=== PATIENT | male | born 1990 | race Caucasian/White ===

== ENCOUNTER 2016-09-14 10:06 | Emergency (ER) | payer OTHER ==
--- NOTE | 2016-09-14 13:42 | ED NURSING NOTES ---
Clinical Report - Nurses [facility] [address] [place] [address] 09/14/2016 10:11 Patient: JONATHAN OQUENDO TRIAGE Triage time 1022 AM. Acuity: LEVEL 3. Alert. No acute distress. SEPSIS SCREEN: Sepsis Screen. Negative (no infection suspected/documented). JESSICA COMA SCORE: [place] Coma Scale: 15- eyes open spontaneously (4); best verbal response- oriented x 4 (5); best motor response- obeys commands (6). --10:33 Sherrell Marina R.N. 10:22 09/14/16. BP: 160/77. HR: 107. RR: 14. O2 saturation: 96%. Temp: 98.4 F (oral). Pain level now: 0/10. --10:33 Sherrell Marina R.N. Chief Complaint: (follow up for fast HR). late entry - 10:22 AM. --13:43 Sherrell Marina R.N. Weight: 104.3 kg stated. Height/Length: 69 inches Per Patient. BMI: 34. --10:21 Sherrell Marina R.N. Medications None. --10:22 Sherrell Marina R.N. Allergies No Known Drug Allergy. --10:22 Sherrell Marina R.N. Medication/allergy information source: the patient. --10:33 Sherrell Marina R.N. History Arrived by private vehicle. Historian: patient. Accompanied by family. Primary physician (Dr. Coleman). ( Pt states that went to walk in clinic yesterday afternoon in [place] due to feeling "fast heart rate" denies dizziness, SOB. Pt states "work up at [place] and was told to come back today to an ER for follow-up. Denies any symptoms since yesterday. Pt does admit being under stress and "drinking all weekend".). This started yesterday. No fever, weakness, cough, difficulty breathing or skin rash. Denies muscle aches. Treatment POT FEEDER: None. PAST MEDICAL HX: Immunizations: up-to-date. SOCIAL HX: Current some days light tobacco smoker. Alcohol use; consumes beer weekly. History of drug use. Recently used drugs days ago. (4). No infectious disease exposure. ABUSE ASSESSMENT: No report of abuse. SELF HARM ASSESSMENT: A self harm assessment was performed. The patient answered "no" to the question "Do you have thoughts of harming or killing yourself?" and "Have you recently had thoughts about harming or killing others?". FALL RISK ASSESSMENT: Fall risk assessment completed. No fall risk identified. NUTRITIONAL RISK ASSESSMENT: The nutritional risk assessment revealed no deficiencies. FUNCTIONAL ASSESSMENT: Functional assessment: no impairments noted. LEARNING NEEDS ASSESSMENT: The learning needs assessment revealed no barriers. SKIN INTEGRITY ASSESSMENT: Skin integrity risk assessment completed. No skin integrity risk identified. --10:33 Sherrell Marina R.N. ( Pt does admit to having used steroids in the past "over a month ago"). --10:35 Sherrell Marina R.N. PROBLEMS: Hypertension. --10:23 Sherrell Marina R.N. ADDITIONAL SURGERIES: no known surgeries. Interventions ID band on patient. --10:33 Sherrell Marina R.N. PHYSICAL ASSESSMENT Ambulatory to room. GENERAL / NEURO / PSYCH: Alert. Oriented X 4. Appears anxious. HEENT: Pupils equal, round and reactive to light. No facial asymmetry noted. Mucous membranes are pink. RESPIRATORY: Respirations not labored. Chest nontender. Breath sounds within normal limits. CVS: Capillary refill less than 2 seconds. Pulses within normal limits. GI / : Abdomen soft and nontender and normal bowel sounds. SKIN: Skin intact. Skin is warm and dry. Normal skin turgor. --10:35 Sherrell Marina R.N. NURSING PROGRESS NOTES The initial plan of care for this patient has been created This plan of care was discussed with the patient and family. monitoring specialist, pulse oximeter and NIBP monitor placed on patient; monitor alarms on. Patient gowned. Two patient identifiers checked. Call light placed in reach. Side rails up. Bed placed in lowest position. --10:36 Sherrell Marina R.N. EKG time: (1038). EKG was ordered, performed by a tech and shown to the ED physician. --10:51 DipeshGayatri, ANDREA Tech1 11:13 09/14/2016 Site #1 started via IV in the left forearm with an 20g angiocath; one attempt. Blood drawn: rainbow set. Labeled in the presence of the patient and sent to the lab. Saline lock flushed. --11:13 Sherrell Marina R.N. Cardiac rhythm: sinus tachycardia. Patient ID band checked for patient name, birthdate and medical record number. Blood samples drawn by nurse per protocol ; labeled in presence of the patient and sent to lab: rainbow set. The patient is calm. ( Pt does admit to doing cocaine this past weekend, would rather not be discussed in front of girlfriend, UA collected. Denies any symptoms). GENERAL / NEURO / PSYCH: The patient reports anxiety. Denies headache. RESPIRATORY: Denies difficulty breathing. CVS: Denies chest pain. GI / : Denies nausea. Call light placed in reach. Side rails up. Bed placed in lowest position. --11:15 Sherrell Marina R.N. 11:13 09/14/16. BP: 161/58. HR: 110. RR: 16. O2 saturation: 100% on room air. Pain level now: 0/10. --11:15 Sherrell Marina R.N. Cardiac rhythm: normal sinus rhythm. monitoring specialist, pulse oximeter and NIBP monitor placed on patient. Reassurance given. GENERAL / NEURO / PSYCH: The patient reports anxiety. Denies headache. RESPIRATORY: Denies difficulty breathing. CVS: Denies chest pain. GI / : Denies nausea. Call light placed in reach. Side rails up. --13:30 Sherrell Marina R.N. 13:29 09/14/16. BP: 153/90 (regular adult cuff) taken on the left arm, via an automated monitor, while sitting. HR: 118. RR: 22. O2 saturation: 100%. Temp: 98.1 F. Pain level now: 0/10. --13:30 Sherrell Marina R.N. DISPOSITION / DISCHARGE 13:39 09/14/2016 Site #1 removed upon discharge. Manual pressure, pressure dressing, bandaid and bandage applied. --13:39 Sherrell Marina R.N. Condition at departure: improved and stable. The goals identified in the patient's plan of care were met. No learning barriers present. Discharge instructions provided and reviewed with the patient. Reviewed warnings (drug use and fast HR). Activity restrictions (rest) reviewed. Patient verbalized understanding. Written instructions provided in Setswana. No medication instructions, treatment instructions or referrals given to the patient. The patient was discharged by the physician. He was discharged home and accompanied by spouse. He left the Emergency Department ambulatory and via private vehicle. Spouse driving. FALL RISK ASSESSMENT: Fall risk assessment completed. No fall risk identified. --13:40 Sherrell Marina R.N. 13:15 09/14/16. BP: 163/58. HR: 110. RR: 20. O2 saturation: 100% on room air. Temp: 98.3 F (oral). Pain level now: 0/10. --13:40 Sherrell Marina R.N. Cardiac rhythm: sinus tachycardia. Cardiac rhythm not normal sinus rhythm. --13:41 Sherrell Marina R.N. Departure time: 1341 PM. --13:41 Sherrell Marina R.N. Locked/Released at 09/14/2016 13:44 by Sherrell Marina R.N.
--- NOTE | 2016-09-14 13:42 | ED NURSING NOTES ---
Clinical Report - Nurses [facility] [address] [place] [address] 09/14/2016 10:11 Patient: JONATHAN OQUENDO TRIAGE Triage time 1022 AM. Acuity: LEVEL 3. Alert. No acute distress. SEPSIS SCREEN: Sepsis Screen. Negative (no infection suspected/documented). JESSICA COMA SCORE: [place] Coma Scale: 15- eyes open spontaneously (4); best verbal response- oriented x 4 (5); best motor response- obeys commands (6). --10:33 Sherrell Marina R.N. 10:22 09/14/16. BP: 160/77. HR: 107. RR: 14. O2 saturation: 96%. Temp: 98.4 F (oral). Pain level now: 0/10. --10:33 Sherrell Marina R.N. Chief Complaint: (follow up for fast HR). late entry - 10:22 AM. --13:43 Sherrell Marina R.N. Weight: 104.3 kg stated. Height/Length: 69 inches Per Patient. BMI: 34. --10:21 Sherrell Marina R.N. Medications None. --10:22 Sherrell Marina R.N. Allergies No Known Drug Allergy. --10:22 Sherrell Marina R.N. Medication/allergy information source: the patient. --10:33 Sherrell Marina R.N. History Arrived by private vehicle. Historian: patient. Accompanied by family. Primary physician (Dr. Coleman). ( Pt states that went to walk in clinic yesterday afternoon in [place] due to feeling "fast heart rate" denies dizziness, SOB. Pt states "work up at [place] and was told to come back today to an ER for follow-up. Denies any symptoms since yesterday. Pt does admit being under stress and "drinking all weekend".). This started yesterday. No fever, weakness, cough, difficulty breathing or skin rash. Denies muscle aches. Treatment BRICK BAKER: None. PAST MEDICAL HX: Immunizations: up-to-date. SOCIAL HX: Current some days light tobacco smoker. Alcohol use; consumes beer weekly. History of drug use. Recently used drugs days ago. (4). No infectious disease exposure. ABUSE ASSESSMENT: No report of abuse. SELF HARM ASSESSMENT: A self harm assessment was performed. The patient answered "no" to the question "Do you have thoughts of harming or killing yourself?" and "Have you recently had thoughts about harming or killing others?". FALL RISK ASSESSMENT: Fall risk assessment completed. No fall risk identified. NUTRITIONAL RISK ASSESSMENT: The nutritional risk assessment revealed no deficiencies. FUNCTIONAL ASSESSMENT: Functional assessment: no impairments noted. LEARNING NEEDS ASSESSMENT: The learning needs assessment revealed no barriers. SKIN INTEGRITY ASSESSMENT: Skin integrity risk assessment completed. No skin integrity risk identified. --10:33 Sherrell Marina R.N. ( Pt does admit to having used steroids in the past "over a month ago"). --10:35 Sherrell Marina R.N. PROBLEMS: Hypertension. --10:23 Sherrell Marina R.N. ADDITIONAL SURGERIES: no known surgeries. Interventions ID band on patient. --10:33 Sherrell Marina R.N. PHYSICAL ASSESSMENT Ambulatory to room. GENERAL / NEURO / PSYCH: Alert. Oriented X 4. Appears anxious. HEENT: Pupils equal, round and reactive to light. No facial asymmetry noted. Mucous membranes are pink. RESPIRATORY: Respirations not labored. Chest nontender. Breath sounds within normal limits. CVS: Capillary refill less than 2 seconds. Pulses within normal limits. GI / : Abdomen soft and nontender and normal bowel sounds. SKIN: Skin intact. Skin is warm and dry. Normal skin turgor. --10:35 Sherrell Marina R.N. NURSING PROGRESS NOTES The initial plan of care for this patient has been created This plan of care was discussed with the patient and family. auditing control clerk, pulse oximeter and NIBP monitor placed on patient; monitor alarms on. Patient gowned. Two patient identifiers checked. Call light placed in reach. Side rails up. Bed placed in lowest position. --10:36 Sherrell Marina R.N. EKG time: (1038). EKG was ordered, performed by a tech and shown to the ED physician. --10:51 DipeshGayatri, ANDREA Tech1 11:13 09/14/2016 Site #1 started via IV in the left forearm with an 20g angiocath; one attempt. Blood drawn: rainbow set. Labeled in the presence of the patient and sent to the lab. Saline lock flushed. --11:13 Sherrell Marina R.N. Cardiac rhythm: sinus tachycardia. Patient ID band checked for patient name, birthdate and medical record number. Blood samples drawn by nurse per protocol ; labeled in presence of the patient and sent to lab: rainbow set. The patient is calm. ( Pt does admit to doing cocaine this past weekend, would rather not be discussed in front of girlfriend, UA collected. Denies any symptoms). GENERAL / NEURO / PSYCH: The patient reports anxiety. Denies headache. RESPIRATORY: Denies difficulty breathing. CVS: Denies chest pain. GI / : Denies nausea. Call light placed in reach. Side rails up. Bed placed in lowest position. --11:15 Sherrell Marina R.N. 11:13 09/14/16. BP: 161/58. HR: 110. RR: 16. O2 saturation: 100% on room air. Pain level now: 0/10. --11:15 Sherrell Marina R.N. Cardiac rhythm: normal sinus rhythm. auditing control clerk, pulse oximeter and NIBP monitor placed on patient. Reassurance given. GENERAL / NEURO / PSYCH: The patient reports anxiety. Denies headache. RESPIRATORY: Denies difficulty breathing. CVS: Denies chest pain. GI / : Denies nausea. Call light placed in reach. Side rails up. --13:30 Sherrell Marina R.N. 13:29 09/14/16. BP: 153/90 (regular adult cuff) taken on the left arm, via an automated monitor, while sitting. HR: 118. RR: 22. O2 saturation: 100%. Temp: 98.1 F. Pain level now: 0/10. --13:30 Sherrell Marina R.N. DISPOSITION / DISCHARGE 13:39 09/14/2016 Site #1 removed upon discharge. Manual pressure, pressure dressing, bandaid and bandage applied. --13:39 Sherrell Marina R.N. Condition at departure: improved and stable. The goals identified in the patient's plan of care were met. No learning barriers present. Discharge instructions provided and reviewed with the patient. Reviewed warnings (drug use and fast HR). Activity restrictions (rest) reviewed. Patient verbalized understanding. Written instructions provided in Serbian. No medication instructions, treatment instructions or referrals given to the patient. The patient was discharged by the physician. He was discharged home and accompanied by spouse. He left the Emergency Department ambulatory and via private vehicle. Spouse driving. FALL RISK ASSESSMENT: Fall risk assessment completed. No fall risk identified. --13:40 Sherrell Marina R.N. 13:15 09/14/16. BP: 163/58. HR: 110. RR: 20. O2 saturation: 100% on room air. Temp: 98.3 F (oral). Pain level now: 0/10. --13:40 Sherrell Marina R.N. Cardiac rhythm: sinus tachycardia. Cardiac rhythm not normal sinus rhythm. --13:41 Sherrell Marina R.N. Departure time: 1341 PM. --13:41 Sherrell Marina R.N. Locked/Released at 09/14/2016 13:44 by Sherrell Marina R.N.
--- NOTE | 2016-09-14 13:42 | ED ORDER SUMMARY ---
..... Patient: JONATHAN OQUENDO OrderSheet [facility] VisitID: [id number] [place] [address] 26y, M Registration Date/Time: 09/14/2016 ORDER SHEET Weight: 104.3 kg (stated) Allergies: No Known Drug Allergy GENERAL ORDERS: CBC w Diff Urgent (10:41 09/14/2016 Martell PERRY) (Ack 10:48 Johnny) (11:13 EHassan R.N.) CMP Urgent (10:41 09/14/2016 Martell PERRY) (Ack 10:48 Johnny) (11:13 EHassan R.N.) UA-Culture if indicated Urgent (10:41 09/14/2016 Martell PERRY) (Ack 10:48 Johnny) (11:13 EHassan R.N.) Amylase Urgent (10:41 09/14/2016 Martell PERRY) (Ack 10:48 Johnny) (11:13 EHassan R.N.) Lipase Urgent (10:41 09/14/2016 Martell PERRY) (Ack 10:48 Johnny) (11:13 EHassan R.N.) CPK Urgent (10:41 09/14/2016 Martell PERRY) (Ack 10:48 Johnny) (11:13 EHassan R.N.) Troponin-I Urgent (10:41 09/14/2016 Martell PERRY) (Ack 10:48 Johnny) (11:13 EHassan R.N.) Urine Drug Screen Urgent (10:41 09/14/2016 Martell PERRY) (Ack 10:48 Johnny) (11:13 ROBERTassan R.N.) TSH Urgent (10:41 09/14/2016 Martell PERRY) (Ack 10:48 Johnny) (11:13 ROBERTassan R.N.) EKG - ER Stat (10:42 09/14/2016 LNations ER Tech1 per protocol) (10:42 LNations ER Tech1) Chest 1V Urgent (13:08 09/14/2016 Martell PERRY) (Ack 13:08 Johnyn) (13:23 EHassan R.N.) MEDICATION ORDERS: IV FLUIDS: IV Saline Lock (10:41 09/14/2016 Martell PERRY) (11:13 Chandu Souza) ORDER SHEET NOTES: [Electronically signed by hSerrell Marina R.N. (13:44 09/14/2016)] [Electronically signed by Irvin Lynn MD (13:58 09/14/2016)] [Electronically locked/signed by Sherrell Marina R.N. (13:44 09/14/2016)]
--- NOTE | 2016-09-14 13:42 | ED ORDER SUMMARY ---
..... Patient: JONATHAN OQUENDO OrderSheet [facility] VisitID: [id number] [place] [address] 26y, M Registration Date/Time: 09/14/2016 ORDER SHEET Weight: 104.3 kg (stated) Allergies: No Known Drug Allergy GENERAL ORDERS: CBC w Diff Urgent (10:41 09/14/2016 Martell PERRY) (Ack 10:48 Johnny) (11:13 EHassan R.N.) CMP Urgent (10:41 09/14/2016 Martell PERRY) (Ack 10:48 Johnny) (11:13 EHassan R.N.) UA-Culture if indicated Urgent (10:41 09/14/2016 Martell PERRY) (Ack 10:48 Johnny) (11:13 EHassan R.N.) Amylase Urgent (10:41 09/14/2016 Martell PERRY) (Ack 10:48 Johnny) (11:13 EHassan R.N.) Lipase Urgent (10:41 09/14/2016 Martell PERRY) (Ack 10:48 Johnny) (11:13 EHassan R.N.) CPK Urgent (10:41 09/14/2016 Martell PERRY) (Ack 10:48 Johnny) (11:13 EHassan R.N.) Troponin-I Urgent (10:41 09/14/2016 Martell PERRY) (Ack 10:48 Johnny) (11:13 EHassan R.N.) Urine Drug Screen Urgent (10:41 09/14/2016 Martell PERRY) (Ack 10:48 Johnny) (11:13 ROBERTassan R.N.) TSH Urgent (10:41 09/14/2016 Martell PERRY) (Ack 10:48 Johnny) (11:13 ROBERTassan R.N.) EKG - ER Stat (10:42 09/14/2016 LNations ER Tech1 per protocol) (10:42 LNations ER Tech1) Chest 1V Urgent (13:08 09/14/2016 Martell PERRY) (Ack 13:08 Johnny) (13:23 EHassan R.N.) MEDICATION ORDERS: IV FLUIDS: IV Saline Lock (10:41 09/14/2016 Martell PERRY) (11:13 Chandu Souza) ORDER SHEET NOTES: [Electronically signed by Sherrell Marina R.N. (13:44 09/14/2016)] [Electronically signed by Irvin Lynn MD (13:58 09/14/2016)] [Electronically locked/signed by Sherrell Marina R.N. (13:44 09/14/2016)]
--- NOTE | 2016-09-14 13:42 | ED CLINICAL REPORT ---
Clinical Report - Physicians/Mid Levels [facility] [address] [place] [address] 09/14/2016 10:11 Patient: JONATHAN OQUENDO Time Seen: 10:43. Arrived- By private vehicle. Historian- patient. HISTORY OF PRESENT ILLNESS Chief Complaint: PALPITATIONS. This started about 4 days ago and is still present. History of cocaine use prior to onset. It has been waxing/waning. It is described as a fast heart beat. No chest pain or discomfort, difficulty breathing, fainting episodes or dizziness. ( patient reports bout of binge drinking over the weekend. He said that while he was drunk he used cocaine. Since that time he has felt that his heart is racing.). Recent medical care: The patient was seen recently at another facility in a clinic. Seen for similar symptoms. Diagnosis: (palpitations). REVIEW OF SYSTEMS No chills, fever, sweats, calf pain or chest pain. No cough, difficulty breathing, pedal edema, abdominal pain or constipation. No diarrhea, nausea, vomiting or urinary problems. All systems otherwise negative, except as recorded above. PAST HISTORY Problems: Hypertension. Additional Surgeries: no known surgeries. Medications: None. Allergies: No Known Drug Allergy. SOCIAL HISTORY Current some days smoker (cigarette). Heavy alcohol use; consumes beer weekly. History of drug use about 4 days ago: cocaine. Recently used drugs. FAMILY HISTORY Denies family medical history. ADDITIONAL NOTES The nursing notes have been reviewed. PHYSICAL EXAM Vital Signs: 09/14/2016 10:22 BP: 160/77. HR: 107. RR: 14. O2 saturation: 96%. Temp: 98.4 F. Pain level now: 0/10. Have been reviewed. Appearance: Alert. Anxious. Eyes: Pupils equal, round and reactive to light. ENT: Pharynx normal. Neck: Normal inspection. Neck supple. CVS: Tachycardia. No cardiac murmur or extra heart sounds. Respiratory: No respiratory distress. Breath sounds normal. Abdomen: Soft and nontender. Bowel sounds normal. No organomegaly. No mass. Back: Normal external inspection. No CVA tenderness. Skin: Skin warm and dry. Normal skin color. Normal skin turgor. Extremities: Extremities exhibit normal ROM. No calf tenderness. No lower extremity edema. LABS, X-RAYS, AND EKG EKG: Rate: 110. Non-specific ST segment / T wave abnormalities. Non-specific T wave inversion in lead V4, V5 and V6. Prior EKG unavailable. The study has been independently viewed by me. Chest X-ray: No acute disease. The X-rays were independently viewed by me. Laboratory Tests: UA-Culture if indicated: (MARNI: 09/14/2016 11:20) ( [facility] [place] 09/14/2016 11:57) Final results Test Result Flag Units (Reference) URINE COLOR TIM URINE APPEARANCE CLEAR URINE GLUCOSE NEGATIVE (NEGATIVE) URINE BILIRUBIN ICTOTEST NEGATIVE (NEGATIVE) URINE KETONE 3+ (NEGATIVE) URINE SPECIFIC GRAVITY 1.025 (1.010-1.030) URINE PH 6.0 (5.0-8.0) URINE PROTEIN 2+ (NEGATIVE) URINE UROBILINOGEN 1.0 EU/dL (0.2-1.0) URINE NITRITE NEGATIVE (NEGATIVE) URINE BLOOD TRACE-INTACT (NEGATIVE) URINE LEUK ESTERASE NEGATIVE (NEGATIVE) URINE RBC RARE rbc/hpf (0-1) URINE WBC 0-1 wbc/hpf (0-1) URINE EPITHELIAL CELLS RARE EPI/hpf (0-5) URINE BACTERIA FEW (1+) (NONE SEEN) URINE COMMENT CULT NOT INDICATED 2+ MUCOUS. RARE HYALINE CAST.URINE CULTURES ARE SET-UP BASED ON THE FOLLOWING CRITERIA:POSITIVE NITRITEPOSITIVE LEUKOCYTE ESTERASEGREATER THAN 10 WHITE BLOOD CELLSMODERATE (2+) OR GREATER BACTERIA CBC w Diff: (MARNI: 09/14/2016 11:10) ( [facility] [place] 09/14/2016 11:27) Final results Test Result Flag Units (Reference) WHITE BLOOD COUNT 7.9 K/uL (4.5-11.5) RED BLOOD COUNT 5.15 M/uL (4.50-5.90) HEMOGLOBIN 16.8 gm/dL (13.5-17.5) HEMATOCRIT 49.8 % (41.0-53.0) MEAN CELL VOLUME 97 fL (80-100) MEAN CORPUSCULAR HGB 33 pg (26-34) MEAN CORPUSCULAR HGB CONC 34 g/dL (31-37) RED CELL DISTRIBUTION WIDTH 13.9 % (11.6-14.8) PLATELET COUNT 241 K/uL (150-400) NEUTROPHIL % 79.3 H % (50-75) LYMPH % 9.9 L % (25-40) MONO % 10.0 % (3-14) EOSINOPHIL % 0.2 % (0-4) BASOPHIL % 0.6 % (0-2) [id number]: (MARNI: 09/14/2016 11:24) ( [facility] [place] 09/14/2016 11:48) Final results Test Result Flag Units (Reference) URINE DRUG SCREEN POSITIVE,Unconfirmed DRUGS DETECTED: Cocaine The urine drug screen is a qualitative screening test fordrug overdose and abuse. All screen results should beconsidered as presumptive.Drugs screened for are as follows:BenzodiazepinesCocaineAmphetamines/MetamphetaminesTHC (Tetrahydrocannabinol)OpiatesBarbituratesTCA (Tricyclic Antidepressants)MethadonePositive results are unconfirmed. For confirmation, notifythe lab for the specimen to be sent to the reference lab.All confirmations must be performed by a differentmethodology.The ingestion of natural herbal and plant productscontaining Ephedra/Ephedra metabolites can produce in urineone or more substances capable of cross reacting withamphetamine/methamphetamine immunoassays. This testprovides a preliminary result only. A more specificalternative chemical method must be used to obtain aconfirmed analytical result. CMP: (MARNI: 09/14/2016 11:10) ( [facility] [place] 09/14/2016 12:13) IP Test Result Flag Units (Reference) GLUCOSE 88 mg/dL (70-110) BUN 13 mg/dL (7-18) CREATININE 1.1 mg/dL (0.6-1.3) Estimated GFR >60 mL/min Estimated GFR- >60 mL/min Note: Persistent reduction over 3 months in eGFR<60 mL/min/1.73 m2 defines CKD. Patients with eGFR values>=60 mL/min/1.73 m2 may also have CKD if evidence ofpersistent proteinuria. Additional information may be foundat www.kidney.org. SODIUM 136 mmol/L (136-145) POTASSIUM 3.4 L mmol/L (3.5-5.1) CHLORIDE 96 L mmol/L (98-107) CARBON DIOXIDE 24 mmol/L (21-32) CALCIUM 9.0 mg/dL (8.5-10.1) TOTAL PROTEIN 7.8 g/dL (6.4-8.2) ALBUMIN 4.1 g/dL (3.3-5.0) BILIRUBIN, TOTAL 1.8 H mg/dL (0.0-1.0) ALKALINE PHOSPHATASE 56 U/L (46-116) AST (SGOT) 50 H U/L (15-37) ALT (SGPT) 42 U/L (12-78) LIPASE 151 U/L (73-393) AMYLASE 40 U/L (25-115) CPK 1054 H U/L (24-260) TROPONIN I <0.05 L ng/mL (0.00-1.5) TROPONIN REFERENCE RANGE:<0.1 NEGATIVE0.1-1.5 INDETERMINANT>1.5 POSITIVE CK-MB 8.1 H ng/mL (0.5-3.2) %CKMB 0.8 % (0.0-4.0) . PROGRESS AND PROCEDURES Course of Care: Patient is stable. Patient/family counseled. Old clinic records reviewed. (his EKG performed at the [facility] on 09/13/16 was different only in that his rate was 161 at that time his nonspecific ST changes and T-wave abnormalities remain unchanged and are nondiagnostic). Disposition: Discharged. Condition: stable. CLINICAL IMPRESSION Palpitations Substance abuse- cocaine. INSTRUCTIONS No strenuous activity. Do not work until released. Avoid stimulants (such as cigarettes, coffee, cold medicines, sinus medicines, street drugs). Warnings: Further evaluation is necessary. GENERAL WARNINGS: Return or contact your physician immediately if your condition worsens or changes unexpectedly, if not improving as expected, or if other problems arise. Understanding of the discharge instructions verbalized by patient. (Electronically signed by Irvin Lynn MD 09/14/2016 13:58)
--- NOTE | 2016-09-14 13:42 | ED CLINICAL REPORT ---
Clinical Report - Physicians/Mid Levels [facility] [address] [place] [address] 09/14/2016 10:11 Patient: JONATHAN OQUENDO Time Seen: 10:43. Arrived- By private vehicle. Historian- patient. HISTORY OF PRESENT ILLNESS Chief Complaint: PALPITATIONS. This started about 4 days ago and is still present. History of cocaine use prior to onset. It has been waxing/waning. It is described as a fast heart beat. No chest pain or discomfort, difficulty breathing, fainting episodes or dizziness. ( patient reports bout of binge drinking over the weekend. He said that while he was drunk he used cocaine. Since that time he has felt that his heart is racing.). Recent medical care: The patient was seen recently at another facility in a clinic. Seen for similar symptoms. Diagnosis: (palpitations). REVIEW OF SYSTEMS No chills, fever, sweats, calf pain or chest pain. No cough, difficulty breathing, pedal edema, abdominal pain or constipation. No diarrhea, nausea, vomiting or urinary problems. All systems otherwise negative, except as recorded above. PAST HISTORY Problems: Hypertension. Additional Surgeries: no known surgeries. Medications: None. Allergies: No Known Drug Allergy. SOCIAL HISTORY Current some days smoker (cigarette). Heavy alcohol use; consumes beer weekly. History of drug use about 4 days ago: cocaine. Recently used drugs. FAMILY HISTORY Denies family medical history. ADDITIONAL NOTES The nursing notes have been reviewed. PHYSICAL EXAM Vital Signs: 09/14/2016 10:22 BP: 160/77. HR: 107. RR: 14. O2 saturation: 96%. Temp: 98.4 F. Pain level now: 0/10. Have been reviewed. Appearance: Alert. Anxious. Eyes: Pupils equal, round and reactive to light. ENT: Pharynx normal. Neck: Normal inspection. Neck supple. CVS: Tachycardia. No cardiac murmur or extra heart sounds. Respiratory: No respiratory distress. Breath sounds normal. Abdomen: Soft and nontender. Bowel sounds normal. No organomegaly. No mass. Back: Normal external inspection. No CVA tenderness. Skin: Skin warm and dry. Normal skin color. Normal skin turgor. Extremities: Extremities exhibit normal ROM. No calf tenderness. No lower extremity edema. LABS, X-RAYS, AND EKG EKG: Rate: 110. Non-specific ST segment / T wave abnormalities. Non-specific T wave inversion in lead V4, V5 and V6. Prior EKG unavailable. The study has been independently viewed by me. Chest X-ray: No acute disease. The X-rays were independently viewed by me. Laboratory Tests: UA-Culture if indicated: (MARNI: 09/14/2016 11:20) ( [facility] [place] 09/14/2016 11:57) Final results Test Result Flag Units (Reference) URINE COLOR TIM URINE APPEARANCE CLEAR URINE GLUCOSE NEGATIVE (NEGATIVE) URINE BILIRUBIN ICTOTEST NEGATIVE (NEGATIVE) URINE KETONE 3+ (NEGATIVE) URINE SPECIFIC GRAVITY 1.025 (1.010-1.030) URINE PH 6.0 (5.0-8.0) URINE PROTEIN 2+ (NEGATIVE) URINE UROBILINOGEN 1.0 EU/dL (0.2-1.0) URINE NITRITE NEGATIVE (NEGATIVE) URINE BLOOD TRACE-INTACT (NEGATIVE) URINE LEUK ESTERASE NEGATIVE (NEGATIVE) URINE RBC RARE rbc/hpf (0-1) URINE WBC 0-1 wbc/hpf (0-1) URINE EPITHELIAL CELLS RARE EPI/hpf (0-5) URINE BACTERIA FEW (1+) (NONE SEEN) URINE COMMENT CULT NOT INDICATED 2+ MUCOUS. RARE HYALINE CAST.URINE CULTURES ARE SET-UP BASED ON THE FOLLOWING CRITERIA:POSITIVE NITRITEPOSITIVE LEUKOCYTE ESTERASEGREATER THAN 10 WHITE BLOOD CELLSMODERATE (2+) OR GREATER BACTERIA CBC w Diff: (MARNI: 09/14/2016 11:10) ( [facility] 09/14/2016 11:27) Final results Test Result Flag Units (Reference) WHITE BLOOD COUNT 7.9 K/uL (4.5-11.5) RED BLOOD COUNT 5.15 M/uL (4.50-5.90) HEMOGLOBIN 16.8 gm/dL (13.5-17.5) HEMATOCRIT 49.8 % (41.0-53.0) MEAN CELL VOLUME 97 fL (80-100) MEAN CORPUSCULAR HGB 33 pg (26-34) MEAN CORPUSCULAR HGB CONC 34 g/dL (31-37) RED CELL DISTRIBUTION WIDTH 13.9 % (11.6-14.8) PLATELET COUNT 241 K/uL (150-400) NEUTROPHIL % 79.3 H % (50-75) LYMPH % 9.9 L % (25-40) MONO % 10.0 % (3-14) EOSINOPHIL % 0.2 % (0-4) BASOPHIL % 0.6 % (0-2) [id number]: (MARNI: 09/14/2016 11:24) ( [facility] 09/14/2016 11:48) Final results Test Result Flag Units (Reference) URINE DRUG SCREEN POSITIVE,Unconfirmed DRUGS DETECTED: Cocaine The urine drug screen is a qualitative screening test fordrug overdose and abuse. All screen results should beconsidered as presumptive.Drugs screened for are as follows:BenzodiazepinesCocaineAmphetamines/MetamphetaminesTHC (Tetrahydrocannabinol)OpiatesBarbituratesTCA (Tricyclic Antidepressants)MethadonePositive results are unconfirmed. For confirmation, notifythe lab for the specimen to be sent to the reference lab.All confirmations must be performed by a differentmethodology.The ingestion of natural herbal and plant productscontaining Ephedra/Ephedra metabolites can produce in urineone or more substances capable of cross reacting withamphetamine/methamphetamine immunoassays. This testprovides a preliminary result only. A more specificalternative chemical method must be used to obtain aconfirmed analytical result. CMP: (MARNI: 09/14/2016 11:10) ( [facility] 09/14/2016 12:13) IP Test Result Flag Units (Reference) GLUCOSE 88 mg/dL (70-110) BUN 13 mg/dL (7-18) CREATININE 1.1 mg/dL (0.6-1.3) Estimated GFR >60 mL/min Estimated GFR- >60 mL/min Note: Persistent reduction over 3 months in eGFR<60 mL/min/1.73 m2 defines CKD. Patients with eGFR values>=60 mL/min/1.73 m2 may also have CKD if evidence ofpersistent proteinuria. Additional information may be foundat www.kidney.org. SODIUM 136 mmol/L (136-145) POTASSIUM 3.4 L mmol/L (3.5-5.1) CHLORIDE 96 L mmol/L (98-107) CARBON DIOXIDE 24 mmol/L (21-32) CALCIUM 9.0 mg/dL (8.5-10.1) TOTAL PROTEIN 7.8 g/dL (6.4-8.2) ALBUMIN 4.1 g/dL (3.3-5.0) BILIRUBIN, TOTAL 1.8 H mg/dL (0.0-1.0) ALKALINE PHOSPHATASE 56 U/L (46-116) AST (SGOT) 50 H U/L (15-37) ALT (SGPT) 42 U/L (12-78) LIPASE 151 U/L (73-393) AMYLASE 40 U/L (25-115) CPK 1054 H U/L (24-260) TROPONIN I <0.05 L ng/mL (0.00-1.5) TROPONIN REFERENCE RANGE:<0.1 NEGATIVE0.1-1.5 INDETERMINANT>1.5 POSITIVE CK-MB 8.1 H ng/mL (0.5-3.2) %CKMB 0.8 % (0.0-4.0) . PROGRESS AND PROCEDURES Course of Care: Patient is stable. Patient/family counseled. Old clinic records reviewed. (his EKG performed at the [facility] [place] on 09/13/16 was different only in that his rate was 161 at that time his nonspecific ST changes and T-wave abnormalities remain unchanged and are nondiagnostic). Disposition: Discharged. Condition: stable. CLINICAL IMPRESSION Palpitations Substance abuse- cocaine. INSTRUCTIONS No strenuous activity. Do not work until released. Avoid stimulants (such as cigarettes, coffee, cold medicines, sinus medicines, street drugs). Warnings: Further evaluation is necessary. GENERAL WARNINGS: Return or contact your physician immediately if your condition worsens or changes unexpectedly, if not improving as expected, or if other problems arise. Understanding of the discharge instructions verbalized by patient. (Electronically signed by Irvin Lynn MD 09/14/2016 13:58)
--- NOTE | 2016-09-14 13:58 | ED DISCHARGE INSTRUCTIONS ---
Patient: JONATHAN OQUENDO General Instructions [facility] VisitID: [id number] [place] [address] 26y, M Registration Date/Time: 09/14/2016 Palpitations Substance abuse- cocaine. INSTRUCTIONS No strenuous activity. Do not work until released. Avoid stimulants (such as cigarettes, coffee, cold medicines, sinus medicines, street drugs). Warnings: Further evaluation is necessary. GENERAL WARNINGS: Return or contact your physician immediately if your condition worsens or changes unexpectedly, if not improving as expected, or if other problems arise. Understanding of the discharge instructions verbalized by patient. ADDITIONAL INFORMATION Heart Palpitations Palpitations refers to the feeling that your heart is beating hard, fast or irregular. Some people describe it as "pounding" or "skipped beats". Palpitations may occur in persons with heart disease, but can also occur in healthy persons. Heart-Related Causes: Arrhythmia (a change from the heart's normal rhythm) Disease of the heart valves [id number] Causes: Certain medicines (such as asthma inhalers and decongestants) Some herbal supplements, energy drinks and pills, and weight loss pills Illegal stimulant drugs (such as cocaine, crank, methamphetamine, PCP) Caffeine, alcohol and tobacco Medical conditions such as thyroid disease, anemia, anxiety and panic disorder Sometimes the cause cannot be found. Home Care: Avoid excess caffeine, alcohol, tobacco and any stimulant drugs. Tell your doctor about any prescription or dtiu-ggu-norinku or herbal medicines you take. Follow Up with your doctor or as advised by our staff. Get Prompt Medical Attention if any of the following occur together with palpitations: Weakness, dizziness, light-headed or fainting Chest pain or shortness of breath Rapid heart rate (over 120 beats per minute, at rest) Palpitations that lasts over 20 minutes Weakness of an arm or leg or one side of the face Difficulty with speech or vision Cocaine and Crack Abuse Cocaine is typically snorted or injected intravenously (IV).Crack is made from cocaine, and can be smoked, causing a more potent effect. Cocaine causes a very powerful psychological dependence. Once you have a psychological dependence, you will do just about anything to get the drug and recreate the feeling it produces. This can increase your risk for any of the following: Overdose that may lead to Loss of your job, your home, your family Accidental injuries to yourself or others while you are under the influence of the drug (in a car or at home) Arrest, conviction and group home sentence for possession of an illegal substance or for driving under the influence Medically, cocaine can affect every organ in your body.It can cause: Chest pain, arrhythmia (abnormal heart beating), heart attack Severe headache, seizures, loss of consciousness, stroke Anxiety, psychosis, confusion Nasal damage (from snorting) Chronic bronchitis (from smoking), shortness of breath HIV infection, Hepatitis B or C, heart infection (from IV use) Kidney failure Home Care: Admit you have a drug problem. Ask for help from your family and close friends. Seek psychotherapy or counseling if depression or anxiety is a problem for you. Join a self-help group for drug abuse. Avoid friends who abuse drugs themselves or tempt you to continue abusing the drug. Eat a balanced diet and begin a regular exercise program. If you continue to use IV cocaine, decrease your risk of receiving or spreading infection by: Only using sterile equipment Do not reuse or share equipment Clean the skin before injecting Follow Up With Your Doctor Or As Advised By Our Staff. Contact One Of The Resources Below For Help. National [place] on Alcoholism and Drug Dependence 305-678-IQDW www.ncadd.org Narcotics Anonymous www.na.org National Alcohol and Substance Abuse Information Center (can tell you about the drug treatment programs in your area) 535.264.7451 www.addictioncareoptions.com Return Promptly Or Contact Your Doctor If Any Of The Following Occurs: Chest, arm, neck or upper back pain Shortness of breath, dizziness, weakness, passing out Agitation, anxiety, unable to sleep Unintended weight loss (more than 10-15 pounds over 6 months) Hallucination, severe depression, thoughts of harming yourself or another Severe headache, seizure; numbness or weakness of the face, one arm or one leg Slurred speech, confusion, trouble speaking, walking or seeing Fever of 100.4F(38C) or higher, or as directed by your healthcare provider Redness, pain or swelling at an injection site Loss of vision or decreased vision You have been given the following additional information: Palpitations Cocaine And Crack Abuse No strenuous activity. Do not work until released. (Electronically signed by Irvin Lynn MD 09/14/2016 13:58)
--- NOTE | 2016-09-14 13:58 | ED MED RECONCILIATION SUMMARY ---
Patient: JONATHAN OQUENDO Medication Reconciliation Report [facility] VisitID: [id number] [address] [place] [place] [address] 26y, M Registration Date/Time: 09/14/2016 Weight: 104.3 kg Height/Length: 69 in. BMI: 34.0 ALLERGIES: No Known Drug Allergy The patient's Home Medications are listed below: NONE. The source(s) of the original Home Medication information: patient The following Medications were given to the patient in the Emergency Department: None. The following Medications were prescribed to the patient: None.
--- NOTE | 2016-09-14 13:58 | ED MAR SUMMARY ---
..... Medication Administration Record [facility] [address] [place], [place] [id number] Patient: JONATHAN OQUENDO Visit ID: [id number] 26y, M Weight: 104.3 kg Height/Length: 69 in BMI: 34 ALLERGIES: No Known Drug Allergy
--- NOTE | 2016-09-14 13:58 | ED MAR SUMMARY ---
..... Medication Administration Record [facility] [address] [place], [place] [id number] Patient: JONATHAN OQUENDO Visit ID: [id number] 26y, M Weight: 104.3 kg Height/Length: 69 in BMI: 34 ALLERGIES: No Known Drug Allergy
--- NOTE | 2016-09-14 13:58 | ED DISCHARGE INSTRUCTIONS ---
Patient: JONATHAN OQUENDO General Instructions [facility] VisitID: [id number] [place] [address] 26y, M Registration Date/Time: 09/14/2016 Palpitations Substance abuse- cocaine. INSTRUCTIONS No strenuous activity. Do not work until released. Avoid stimulants (such as cigarettes, coffee, cold medicines, sinus medicines, street drugs). Warnings: Further evaluation is necessary. GENERAL WARNINGS: Return or contact your physician immediately if your condition worsens or changes unexpectedly, if not improving as expected, or if other problems arise. Understanding of the discharge instructions verbalized by patient. ADDITIONAL INFORMATION Heart Palpitations Palpitations refers to the feeling that your heart is beating hard, fast or irregular. Some people describe it as "pounding" or "skipped beats". Palpitations may occur in persons with heart disease, but can also occur in healthy persons. Heart-Related Causes: Arrhythmia (a change from the heart's normal rhythm) Disease of the heart valves Nqy-Gbryr-Wkytrii Causes: Certain medicines (such as asthma inhalers and decongestants) Some herbal supplements, energy drinks and pills, and weight loss pills Illegal stimulant drugs (such as cocaine, crank, methamphetamine, PCP) Caffeine, alcohol and tobacco Medical conditions such as thyroid disease, anemia, anxiety and panic disorder Sometimes the cause cannot be found. Home Care: Avoid excess caffeine, alcohol, tobacco and any stimulant drugs. Tell your doctor about any prescription or gavk-blo-epkobsk or herbal medicines you take. Follow Up with your doctor or as advised by our staff. Get Prompt Medical Attention if any of the following occur together with palpitations: Weakness, dizziness, light-headed or fainting Chest pain or shortness of breath Rapid heart rate (over 120 beats per minute, at rest) Palpitations that lasts over 20 minutes Weakness of an arm or leg or one side of the face Difficulty with speech or vision Cocaine and Crack Abuse Cocaine is typically snorted or injected intravenously (IV).Crack is made from cocaine, and can be smoked, causing a more potent effect. Cocaine causes a very powerful psychological dependence. Once you have a psychological dependence, you will do just about anything to get the drug and recreate the feeling it produces. This can increase your risk for any of the following: Overdose that may lead to Loss of your job, your home, your family Accidental injuries to yourself or others while you are under the influence of the drug (in a car or at home) Arrest, conviction and long term sentence for possession of an illegal substance or for driving under the influence Medically, cocaine can affect every organ in your body.It can cause: Chest pain, arrhythmia (abnormal heart beating), heart attack Severe headache, seizures, loss of consciousness, stroke Anxiety, psychosis, confusion Nasal damage (from snorting) Chronic bronchitis (from smoking), shortness of breath HIV infection, Hepatitis B or C, heart infection (from IV use) Kidney failure Home Care: Admit you have a drug problem. Ask for help from your family and close friends. Seek psychotherapy or counseling if depression or anxiety is a problem for you. Join a self-help group for drug abuse. Avoid friends who abuse drugs themselves or tempt you to continue abusing the drug. Eat a balanced diet and begin a regular exercise program. If you continue to use IV cocaine, decrease your risk of receiving or spreading infection by: Only using sterile equipment Do not reuse or share equipment Clean the skin before injecting Follow Up With Your Doctor Or As Advised By Our Staff. Contact One Of The Resources Below For Help. National [place] on Alcoholism and Drug Dependence 865-850-ULYX www.ncadd.org Narcotics Anonymous www.na.org National Alcohol and Substance Abuse Information Center (can tell you about the drug treatment programs in your area) 648.865.4019 www.addictioncareoptions.com Return Promptly Or Contact Your Doctor If Any Of The Following Occurs: Chest, arm, neck or upper back pain Shortness of breath, dizziness, weakness, passing out Agitation, anxiety, unable to sleep Unintended weight loss (more than 10-15 pounds over 6 months) Hallucination, severe depression, thoughts of harming yourself or another Severe headache, seizure; numbness or weakness of the face, one arm or one leg Slurred speech, confusion, trouble speaking, walking or seeing Fever of 100.4F(38C) or higher, or as directed by your healthcare provider Redness, pain or swelling at an injection site Loss of vision or decreased vision You have been given the following additional information: Palpitations Cocaine And Crack Abuse No strenuous activity. Do not work until released. (Electronically signed by Irvin Lynn MD 09/14/2016 13:58)
--- NOTE | 2016-09-14 13:58 | ED MED RECONCILIATION SUMMARY ---
Patient: JONATHAN OQUENDO Medication Reconciliation Report [facility] VisitID: [id number] [address] [place] [address] 26y, M Registration Date/Time: 09/14/2016 Weight: 104.3 kg Height/Length: 69 in. BMI: 34.0 ALLERGIES: No Known Drug Allergy The patient's Home Medications are listed below: NONE. The source(s) of the original Home Medication information: patient The following Medications were given to the patient in the Emergency Department: None. The following Medications were prescribed to the patient: None.
--- NOTE | 2016-09-14 14:01 | DIAGNOSTIC IMAGING REPORT ---
PROCEDURE: XR CHEST 1 VIEW INDICATION: PALPITATIONS TECHNIQUE: Portable AP view 01:21 p.m. COMPARISON: None. FINDINGS: Lungs are clear. Heart and mediastinum are normal. Thorax is normal. IMPRESSION: 1. Negative chest.
== END 2016-09-14 13:41 | disposition home or self-care (01) ==
LOC: ED SRH 10:06
DX: R00.2 Palpitations (principal); F14.10 Cocaine abuse, uncomplicated; I10 Essential (primary) hypertension; F17.210 Nicotine dependence, cigarettes, uncomplicated
CPT/HCPCS: 90004; 90100; 90616; 90617; 90939; 92235; 92530; 92610; 93140; 95059